=== PATIENT | female | born 1975 | race Caucasian/White ===

== ENCOUNTER → 2022-02-10 14:06 | Outpatient (BNVA) | payer MEDICAID, SELFPAY | PROVIDERS: Visit Provider Family Medicine | DX: R73.03 Prediabetes (principal); D50.9 Iron deficiency anemia, unspecified; Z98.84 Bariatric surgery status | CPT/HCPCS: 80053; 80061; 82306; 82607; 82728; 82746; 83036; 83550; 84443; 85025 ==

== ENCOUNTER → 2022-06-26 10:38 | Outpatient (BNVA) | payer MEDICAID, SELFPAY | PROVIDERS: PCP Family Medicine; Referring Provider Family Medicine; Visit Provider Psychiatry & Neurology Neurology | DX: I99.8 Other disorder of circulatory system (principal); G45.9 Transient cerebral ischemic attack, unspecified; I63.9 Cerebral infarction, unspecified | CPT/HCPCS: 36415; 81241; 82565; 82746; 83090; 83921; 84520; 85210; 85300; 85303; 85305; 85610; 85613; 85730; 86146; 86147 ==

== ENCOUNTER 2022-07-05 07:07 | Outpatient (CLI) | payer MEDICAID, SELFPAY ==
--- NOTE | 2022-07-05 07:30 | CT_ITS ---
WS: [id number] CTA HEAD TECHNIQUE: Contrast enhanced CTA of the head with coronal and sagittal reformatted images and maximum intensity projection (MIP) images. NASCET criteria utilized. CLINICAL INFORMATION: I99.8 - Other disorder of circulatory system COMPARISON: None. DLP: 2204.[address] scans at [facility] use at least one of these dose optimization techniques: automated e xposure control; mA and/or kV adjustment per patient size (includes targeted exams where dose is matc hed to clinical indication); or iterative reconstruction. FINDINGS: No evidence of intracranial hemorrhage or mass effect. Ventricular system and basal cistern s are patent. Benign-appearing asymmetric dilatation RIGHT frontal horn likely due to intraventricula r small arachnoid cyst measuring 10 mm. This is CSF attenuation. No hydrocephalus. Incidental cerebellar tonsillar ectopia. Normal 4th ventricle. Normal hughes-white differentiation. INTRACRANIAL CTA: Distal vertebral arteries are patent. Basilar artery is patent. Normal vascularity to the CREDIT CONTROL ADMINISTRATOR territo ry bilaterally. Both ICAs are patent at the skull base. Normal vascularity to the GERBER and MCA territories bilaterally . No evidence of flow-limiting stenosis or aneurysm. Mild cavernous carotid calcification. Normal pos terior nasopharynx. Paranasal sinuses and mastoid air cells well aerated. Normal dural venous sinuses. CT/CT angio head [id number] IMPRESSION: 1. Normal intracranial CTA. No evidence of proximal flow limiting stenosis or aneurysm. 2. Incidental cerebellar tonsillar ectopia. 3. Slight asymmetric dilatation of the RIGHT frontal horn likely due to small intraventricular arachnoid cyst. No hydrocephalus. 4. No other suspicious findings.
[2022-07-05] MEDS: iohexol 350 mg/mL 500 mL Btl (per mL) IV (07:35)
== END 2022-07-05 07:08 | disposition home or self-care (01) ==
PROVIDERS: PCP Family Medicine; Visit Provider Psychiatry & Neurology Neurology
DX: I99.8 Other disorder of circulatory system (principal)
CPT/HCPCS: 70496; Q9967

== ENCOUNTER 2022-07-13 08:24 | Outpatient (CLI) | payer MEDICAID, SELFPAY ==
--- NOTE | 2022-07-13 08:45 | MR_ITS ---
WS: [id number] MRI BRAIN WITHOUT CONTRAST HISTORY: I99.8 - Other disorder of circulatory system COMPARISON: CT angiogram 07/05/2022 TECHNIQUE: Diffusion imaging, multiplanar T1, T2 and FLAIR imaging obtained. No evidence for acute infarct or hemorrhage. Alexandre-white matter differentiation is normal. No prior infarct. There are a few scattered T2 and FLAIR signal hyperintensities predominantly within the frontal lobes and surrounding the anterior horn of the RIGHT lateral ventricle. Small lacunar in farct in the RIGHT pollard radiata. There is mild asymmetric dilatation and rounding of the RIGHT anterior frontal horn. Suspected to be an intraventricular arachnoid cyst on a prior CT. There is mild bulging and a rounded configuration o f the RIGHT anterior horn lateral ventricle. There is adjacent increased FLAIR and T2 signal which ma y be interstitial edema. There is no obstruction. Otherwise ventricular system is normal. Mild cerebellar ectopia. The sella turcica and pituitary gland are unremarkable. 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 Dural venous sinuses and united ke[place] of Lou demonstrate no abnormality on this unenhanced studies. Paranasal sinuses: Clear. Mastoid air cells: Normal. Calvarium and scalp: Intact. MR/MR head wo con* [id number] IMPRESSION: 1. Mild rounded configuration anterior horn RIGHT lateral ventricle with adjac ent interstitial edema. Suspected intraventricular arachnoid cyst was noted on a recent CT angiogram. Configuration follows CSF on all sequences. No obstructi ve hydrocephalus. 2. Very mild FLAIR and T2 signal changes in the frontal horns. Greatest adjace nt to the RIGHT lateral ventricle. No acute infarct. A few of the signal abnorm alities adjacent to the RIGHT lateral ventricle are perpendicular to the corpus callosum which can be seen with demyelination. 3. 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
== END 2022-07-13 08:25 | disposition home or self-care (01) ==
PROVIDERS: PCP Family Medicine; Visit Provider Psychiatry & Neurology Neurology
DX: I99.8 Other disorder of circulatory system (principal); G93.0 Cerebral cysts
CPT/HCPCS: 70551

== ENCOUNTER 2022-07-24 14:31 | Oncology outpatient (recurring) (ONCR) | payer MEDICAID, SELFPAY | END 2022-08-02 23:59 | disposition home or self-care (01) | PROVIDERS: PCP Family Medicine; Visit Provider Internal Medicine Medical Oncology | DX: E61.1 Iron deficiency (principal); I63.9 Cerebral infarction, unspecified | CPT/HCPCS: 80053; 82728; 83540; 83550; 85025; 85378 ==

== ENCOUNTER 2022-08-28 08:09 | Outpatient (CLI) | payer MEDICAID, SELFPAY ==
[2022-08-28] MEDS: iohexol 350 mg/mL 500 mL Btl (per mL) PO (09:00)
--- NOTE | 2022-08-28 09:30 | CT_ITS ---
WS: [id number] CT ABDOMEN AND PELVIS WITH CONTRAST HISTORY: lymphedema TECHNIQUE: Imaging performed of the abdomen and pelvis with IV contrast. Single phase imaging of the abdomen. Coronal and sagittal reformats are submitted. All CT scans at [facility] use at nate [facility] one of these dose optimization techniques: automated exposure control; mA and/or kV adjustment per patient size (includes targeted exams where dose is matched to clinical indication); or iterative re construction. IV CONTRAST: Omnipaque 350; 100 mL IV. Oral contrast: Yes. DLP: 284.44 mGy.cm COMPARISON: None available. Lower thorax: Lung bases are clear. Heart is normal size. No hiatal hernia. Liver/biliary system: Normal size with no intrahepatic dilatation. Gallbladder: Normal. No gallstones or wall thickening. No pericholecystic fluid. Pancreas: Normal size pancreas and pancreatic duct. No adjacent inflammation. Spleen: Normal size spleen. No mass or infarct. Adrenal glands: Low-attenuation mass RIGHT adrenal gland measures 2.2 x 1.7 cm. Hounsfield units are elevated. Normal LEFT adrenal gland. Right kidney: Normal. Left kidney: Normal. Aorta: Normal. Lymphadenopathy: None. Free fluid: None. GI tract: Prior gastric bypass. No small bowel or colon obstruction. The appendix is not identified. Abdominal wall: Unremarkable abdominal wall. No hernia. Pelvis: No free fluid or adenopathy within the pelvis. Uterus is present. The cervix is of very low a ttenuation and mildly thickened. Increased diameter and low-attenuation throughout this cervix. Bones: Unremarkable. CT/CT abdomen pelvis w con* [id number] IMPRESSION: 1. Abnormal cervix. Diffuse low-attenuation throughout the cervix with thicken ing. Recommend BICYCLE INSPECTOR evaluation for possible cervical malignancy. 2. No ascites or adenopathy. 3. RIGHT adrenal mass with enhancement. Further evaluation recommended to exclu de metastatic site versus benign adenoma. Further evaluation may include CT ad renal mass protocol or MRI with and without contrast with adrenal mass protocol . 4. Gastric bypass.
[2022-08-28] MEDS: iohexol 350 mg/mL 500 mL Btl (per mL) IV (09:41)
== END 2022-08-28 08:10 | disposition home or self-care (01) ==
PROVIDERS: PCP Family Medicine; Visit Provider Internal Medicine Medical Oncology
DX: D49.7 Neoplasm of unspecified behavior of endocrine glands and other parts of nervous system (principal); I89.0 Lymphedema, not elsewhere classified; Z98.0 Intestinal bypass and anastomosis status; R93.89 Abnormal findings on diagnostic imaging of other specified body structures
CPT/HCPCS: 74177; Q9967

== ENCOUNTER → 2022-09-14 15:00 | Outpatient (BNVA) | payer MEDICAID, SELFPAY | PROVIDERS: PCP Family Medicine; Visit Provider Obstetrics & Gynecology | DX: N88.8 Other specified noninflammatory disorders of cervix uteri (principal) | CPT/HCPCS: 87624; 88305 ==

== ENCOUNTER 2022-10-10 13:21 | Oncology outpatient (recurring) (ONCR) | payer MEDICAID, SELFPAY ==
[2022-10-10 13:30] VITALS: BP 106/71; PULSE 66; RESP 18; TEMP 36.5; O2SAT 98
[2022-10-10 13:54] LABS: Basophils # 0.1 10^3/uL (0.0-0.1); Basophils % 0.9 %; Eosinophils # 0.1 10^3/uL (0.0-0.8); Eosinophils % 2.4 %; Hematocrit 34.1 % (37.0-47.0); Hemoglobin 10.7 g/dL (11.5-15.3); Lymphocytes # 2.1 10^3/uL (0.8-4.8); Lymphocytes % 36.3 %; Mean Corpuscular HGB Conc 31.4 g/dL (30.0-36.0); Mean Corpuscular Volume 92.4 fl (81-99); Mean Platelet Volume 9.3 fL (7.4-10.4); Monocytes # 0.5 10^3/uL (0.2-0.9); Monocytes % 8.6 %; Neutrophils # 3.02 10^3/uL (1.8-7.7); Neutrophils % 51.6 %; Nucleated Red Blood Cells % 0 %; Platelet Count 338 10^3/cmm (130-400); Red Blood Count 3.69 10^6/uL (4.1-5.3); Red Cell Distribution Width 14.5 % (12.1-15.1); White Blood Count 5.8 10^3/uL (4.0-10.0)
[2022-10-10 14:20] LABS: Ferritin 9 ng/mL (15-150); Iron 29 ug/dL (37-145); Percent Saturation 8.1 % (20-50); Total Iron Binding Capacity 358 mcg/dl; Unsaturated Iron Binding 329 ug/dL (112-347)
== END 2022-11-02 23:59 | disposition home or self-care (01) ==
LOC: ONCMED 13:22
PROVIDERS: PCP Family Medicine; Visit Provider Internal Medicine Medical Oncology
DX: E61.1 Iron deficiency (principal)
CPT/HCPCS: 36415; 82728; 83540; 83550; 85025

== ENCOUNTER 2022-11-01 08:18 | Emergency (ER) | payer MEDICAID, SELFPAY ==
[2022-11-01 08:46] VITALS: BP 135/90; PULSE 86; RESP 18; TEMP 36.4; O2SAT 99
--- NOTE | 2022-11-01 08:50 | ED_ITS ---
HPI - Abdominal Pain General: Chief Complaint: Abdominal Pain Stated Complaint: N/V/D, Fever, abd pain Time Seen by Provider: 11/01/22 08:19 Source: patient Mode of arrival: ambulatory Limitations: no limitations History of Present Illness: Patient is a 47-year-old female with past medical history of factor V Leiden who presents to the emergency department complaining of nausea/vomiting/diarrhea/abdominal pain onset 8 days ago. Patient states that approximately 7-8 days ago, she developed started developing lower abdominal/pelvic pain associated with nausea and has had approximately 10 episodes of vomiting since. She states that she has been unable to keep down any solid foods, and this has resulted in her feeling weak. She states she has been able to keep down liquids however. She also notes she has had multiple episodes of diarrhea. She denies noticing any blood in both her vomit or diarrhea. She also notes waking up multiple times during the night drenched in sweat, and reports a subjective fever. Patient had biopsies done on multiple cervical masses approximately 1 month ago, which were reportedly resulted as benign. She is currently undergoing evaluation of an adrenal mass that was incidentally found on his CT scan approximately 2 months ago and awaiting MRI for this. She states that she is awaiting prescription for a blood thinner for her factor V Leiden. She denies any urinary symptoms such as hematuria or dysuria, denies any history of kidney stones. She further denies any vaginal symptoms such as discharge or foul odor. Monogamous with partner and no concerns for STDs. With her abdominal pain, she states that it is worse when she eats, when she defecates, and when she moves. She reports taking Tylenol for her pain, to no relief. The pain has been constant since onset, but states that it intermittently gets worse and is currently a 7/10 sharp pain. She further denies any chest pain, shortness of breath, skin color changes, palpitations, or any other symptoms. Previous abdominal surgeries include tubal ligation. She states LMP was about 10 days ago-right before symptoms started. She did mention she has been having increasingly painful menstrual cramps. MD elicited complaint: abdominal pain Pertinent past history: other (Factor V Leiden) Onset (ago): day(s) Pain Consistency: constant Location: RLQ, LLQ, Suprapubic and Pelvis Severity: severe Pain scale (0-10): 7 Quality: sharp Radiation: back Migration to: no migration Exacerbating factors: eating, bowel movement and movement Relieving factors: nothing Associated Symptoms: Reports diarrhea, fever(s), nausea and vomiting; Denies constipation, dysuria, heartburn, hematochezia, hematemesis, melena and syncope Related Data: Patient : No Review of Systems Const: Reports: fever(s), malaise and diaphoresis; Denies: body aches Eyes: Denies: change in vision or blurry vision Card: Denies: chest pain, palpitations, irregular heart rhythm, lightheadedness, syncope or dyspnea on exertion Resp: Denies: dyspnea, productive cough or pain on inspiration GI: Reports: abdominal pain, nausea, vomiting and diarrhea; Denies: hematemesis, heartburn, constipation, hematochezia, melena, white/light colored stool or steatorrhea : Reports: pelvic pain; Denies: flank pain, difficulty voiding, dysuria, urinary frequency, urinary urgency, urinary hesitancy, vaginal odor, vaginal bleeding or vaginal discharge Musc: Reports: back pain; Denies: neck pain, extremity pain, extremity swelling or joint pain Skin/Breast: Denies: rash Neuro: Denies: headache(s), numbness in extremities, weakness in extremities or sensory changes PFSH ED PFSH: Medical History Anxiety Depression Iron deficiency Lymphedema Pre-diabetes Recurrent strokes TIA (transient ischemic attack) Venous insufficiency Surgical History History of Loco-en-Y gastric bypass 2014 History of surgery on lower extremity History of tubal ligation Family History Mother Ovarian cancer Grandmother Thyroid disease Stroke Other Cancer Diabetes Denies family history of Colon cancer Heart disease Hypercholesteremia Breast cancer Hypertension Uterine cancer Physical Exam Const: COMMON NORMALS: average body habitus, patient oriented x3, no limitations, healthy appearing, alert and well nourished GENERAL APPEARANCE: cooperative and in distress (appears mildly uncomfortable) ORIENTATION/CONSCIOUSNESS: Yes awake, Yes oriented to person, Yes oriented to place and Yes oriented to time HENMT: COMMON NORMALS: normocephalic and atraumatic HEAD & SCALP: normocephalic and atraumatic Eye: COMMON NORMALS: no scleral icterus Neck/C-Spine: COMMON NORMALS: full ROM, no lymphadenopathy, supple and no meningeal signs Chest: COMMONS NORMALS: normal inspection of the chest Resp: COMMON NORMALS: normal respiratory effort and clear to auscultation bilaterally AUSCULTATION: clear to auscultation bilaterally Cardio: COMMON NORMALS: regular rate, regular rhythm, No gallops present (Cardio), No clicks present (Cardio), No murmurs present (Cardio) and No rub (Cardio) RATE: regular rate RHYTHM: regular rhythm GI: COMMON NORMALS: Normal to inspection, nondistended, normoactive bowel sounds present, Soft to palpation, No hepatosplenomegaly present and no masses AUSCULTATION: Yes normoactive bowel sounds PALPATION: Yes Soft to palpation, Yes Tenderness to palpation present (GI) (max tenderness across pelvis; mild epigastric tenderness-causes nausea), No Guarding due to palpation present (GI), No Rigid due to palpation and Yes No hepatosplenomegaly present OTHER: There is moderate tenderness to palpation of the suprapubic region with voluntary guarding. There is also mild tenderness to palpation of the bilateral lower quadrants/pelvis as well as the epigastrium. No signs of overlying skin color changes or bruising. No masses/bulges. No palpable masses or organomegaly noted. Normal bowel sounds. : COMMON NORMALS: Yes no CVA tenderness BLADDER/KIDNEY EXAM: Yes no CVA tenderness Back/Pelvis: COMMON NORMALS: no CVA tenderness, thoracic and lumbar spine normal to inspection, no thoracic nor lumbar tenderness and thoraco-lumbar ROM normal Extremity: COMMON NORMALS: normal to inspection GENERAL: Yes normal exam except as noted Neuro: ELLIE COMA SCALE: document GCS findings Ellie coma scale eye opening: Spontaneous [place] coma scale verbal response: Orientated [place] coma scale motor response: Obey commands Ellie coma scale total score: 15 COMMON NORMALS: patient oriented x3, moves all extremities, no focal motor deficits and no sensory deficits noted SENSORIUM/ORIENTATION: Yes alert, Yes oriented to person, Yes oriented to place and Yes oriented to time MENINGEAL SIGNS: Yes no meningeal signs Skin: COMMON NORMALS: no rashes or lesions noted GENERAL SKIN EXAM: no rashes or lesions noted Course Vital Signs: Vital signs: Vital Signs Temperature 97.6 F 11/01/22 08:46 Pulse Rate 90 11/01/22 10:49 Respiratory Rate 16 11/01/22 10:49 Blood Pressure 120/80 11/01/22 10:49 Pulse Oximetry 96 11/01/22 10:49 Oxygen Delivery Me thod Room Air 11/01/22 10:49 MDM - Abdominal Pain Medical Decision Making Patient is a 47-year-old female here for lower abdominal pain, nausea, vomiting, diarrhea for the past 8 days. She arrives with normal vital signs. On exam pain seem to be lower in the pelvis this transvaginal ultrasound imaging initially obtained. Ultrasound showing flow to both ovaries but radiologist commented on the presence of multiple peripheral follicles with slightly decreased flow when compared to right ovary that she said could in theory represent an intermittent torsion. I spoke to her personally and she was not overly convinced. Decision was made for CT imaging. On CT scan patient has a fairly extensive enterocolitis which certainly clinically fits. Again she is not tachycardic or febrile. She is not hypotensive. Blood work shows a white count of 15.1. Minor metabolic derangements. Potassium of 3.0. She was given oral potassium here. She was also given IV fluids and antiemetics. She reports feeling better. At this time I will discharge her home with pain and nausea meds as well as place her on Cipro and Flagyl and have her promptly follow-up with her primary care provider. Strict return to ED precautions given. Lab Data 11/01/22 08:51 11/01/22 08:51 Labs/Radiology: Laboratory Results WBC 15.13 10^3/uL (3.29-11.43) H 11/01/22 08:51 RBC 4.48 10^6/uL (3.85-5.65) 11/01/22 08:51 Hgb 12.70 g/dL (11.27-16.99) 11/01/22 08:51 Hct 39.1 % (36-47) 11/01/22 08:51 MCV 87.3 fl (85-98) 11/01/22 08:51 MCH 28.3 pg (27-33) 11/01/22 08:51 MCHC 32.5 g/dL (30-55) 11/01/22 08:51 RDW 13.9 % (12.1-15.1) 11/01/22 08:51 Plt Count 296 10^3/cmm (157-399) 11/01/22 08:51 MPV 9.1 fL (7.4-10.4) 11/01/22 08:51 Neut % (Auto) 76.6 % 11/01/22 08:51 Lymph % (Auto) 7.5 % 11/01/22 08:51 Hutchinson % (Auto) 14.1 % 11/01/22 08:51 Eos % (Auto) 0.1 % 11/01/22 08:51 Baso % (Auto) 0.8 % 11/01/22 08:51 Neut # (Auto) 11.60 10^3/uL (1.8-7.7) H 11/01/22 08:51 Lymph # (Auto) 1.1 10^3/uL (0.8-4.8) 11/01/22 08:51 Hutchinson # (Auto) 2.1 10^3/uL (0.2-0.9) H 11/01/22 08:51 Eos # (Auto) 0.0 10^3/uL (0.0-0.8) 11/01/22 08:51 Baso # (Auto) 0.1 10^3/uL (0.0-0.1) 11/01/22 08:51 Nucleated RBC % (auto) 0 % 11/01/22 08:51 Nucleated RBCs # 0.0 /100WBC 11/01/22 08:51 Sodium 135 mmol/L (136-145) L 11/01/22 08:51 Potassium 3.0 mmol/L (3.5-5.1) L 11/01/22 08:51 Chloride 97 mmol/L (98-107) L 11/01/22 08:51 Carbon Dioxide 25 mmol/L (22-29) 11/01/22 08:51 Anion Gap 16.0 (5-19) 11/01/22 08:51 BUN 4 mg/dL (6-20) L 11/01/22 08:51 Creatinine 0.4 mg/dL (0.5-0.9) L 11/01/22 08:51 GFR Calculation 170.4 mL/min (90-130) H 11/01/22 08:51 Glucose 120 mg/dL (65-115) H 11/01/22 08:51 Calculated Osmolality 278 mOsm/kg (285-295) L 11/01/22 08:51 Calcium 8.4 mg/dL (8.5-10.5) L 11/01/22 08:51 Magnesium 1.7 mg/dL (1.7-2.3) 11/01/22 08:51 Total Bilirubin 0.4 mg/dL (0.15-1.2) 11/01/22 08:51 AST 9 U/L (0-32) 11/01/22 08:51 ALT 10 U/L (0-33) 11/01/22 08:51 Alkaline Phosphatase 79 U/L (35-105) 11/01/22 08:51 Total Protein 6.8 g/dL (6.6-8.7) 11/01/22 08:51 Albumin 3.8 g/dL (3.5-5.2) 11/01/22 08:51 Globulin 3.0 g/dL (1.3-4.6) 11/01/22 08:51 Lipase 10 U/L (13-60) L 11/01/22 08:51 HCG, Qual Negative (Negative) 11/01/22 08:51 Urine Color Yellow (Yellow) 11/01/22 09:32 Urine Appearance Clear (CLEAR) 11/01/22 09:32 Urine pH 5 (5-7) 11/01/22 09:32 Ur Specific [place] 1.025 (1.005-1.030) 11/01/22 09:32 Urine Protein Trace (Negative) 11/01/22 09:32 Urine Glucose (UA) Norm (Normal) 11/01/22 09:32 Urine Ketones 3+ (Negative) H 11/01/22 09:32 Urine Blood Neg (Negative) 11/01/22 09:32 Urine Nitrate Negative (Negative) 11/01/22 09:32 Urine Bilirubin Neg (Negative) 11/01/22 09:32 Urine Urobilinogen Norm mg/dL (Negative) 11/01/22 09:32 Ur Leukocyte Esterase Negative (Negative) 11/01/22 09:32 Urine RBC 0-4 /hpf (0-2) H 11/01/22 09:32 Urine WBC 0-4 /hpf (0-5) H 11/01/22 09:32 Ur Squamous Epith Cells 0-4 /hpf (0-5) H 11/01/22 09:32 Amorphous Sediment Not Reportable 11/01/22 09:32 Urine Bacteria 1+ /hpf (NONE) H 11/01/22 09:32 Discharge Plan Discharge Patient Disposition: Home Clinical Impression: Enterocolitis Condition: Stable Prescriptions: New hydrocodone-acetaminophen 5-325 mg tablet 1 tab PO Q6H PRN (Reason: pain) Qty: 10 0RF metronidazole 500 mg tablet 500 mg PO BID 7 Days Qty: 14 0RF Cipro 500 mg tablet 500 mg PO Q12H Qty: 14 0RF ondansetron 4 mg tablet,disintegrating 4 mg PO Q8H PRN (Reason: nausea and vomiting) Qty: 14 0RF No Action mecobalamin (vitamin B12) 1,000 mcg tablet,chewable 1,000 mcg PO DAILY B-complex with vitamin C Tablet 1 tab PO DAILY methocarbamol 500 mg tablet 500 mg PO TID Qty: 90 2RF trazodone 50 mg tablet 50 mg PO .at bedtime Qty: 90 0RF aspirin 325 mg tablet 325 mg PO DAILY potassium chloride 20 mEq tablet extended release 20 meq PO DAILY Qty: 90 2RF bupropion HCl 300 mg tablet extended release 24 hr 300 mg PO QAM Qty: 30 1RF Rx Instructions: Please disregard prior Rx furosemide 20 mg tablet 20 mg PO DAILY Discharge Orders: Discharge ED (Routine); Ordered 11/01/22 Ordered By: Merle Al Referrals: Wendie Lopez DO [Primary Care Provider] - Patient Instructions: Infectious Colitis (ED), Colitis (ED) Activity Restrictions/Additional Instructions: As we discussed you need to follow-up promptly with your primary care provider either later this week or early next week. As we discussed you need to return to the emergency department for worsening abdominal pain, continued episodes of vomiting or diarrhea, inability to hold down your medications, fevers greater than 100.4, generally feeling worse or unwell, or any other concerns you may have. I hope you begin to feel better soon. Once symptoms subside you may speak to your primary care provider about the need for a possible colonoscopy. Coding Level of Care Code ED It Sales Consultant for Joseph Gonzalez
[2022-11-01 08:58] LABS: Basophils # 0.1 10^3/uL (0.0-0.1); Basophils % 0.8 %; Eosinophils % 0.1 %; Hematocrit 39.1 % (36-47); Lymphocytes # 1.1 10^3/uL (0.8-4.8); Lymphocytes % 7.5 %; Mean Corpuscular HGB Conc 32.5 g/dL (30-55); Mean Corpuscular Hemoglobin 28.3 pg (27-33); Mean Corpuscular Volume 87.3 fl (85-98); Mean Platelet Volume 9.1 fL (7.4-10.4); Monocytes # 2.1 10^3/uL (0.2-0.9); Monocytes % 14.1 %; Neutrophils % 76.6 %; Nucleated Red Blood Cells % 0 %; Platelet Count 296 10^3/cmm (157-399); Red Blood Count 4.48 10^6/uL (3.85-5.65); Red Cell Distribution Width 13.9 % (12.1-15.1); White Blood Count 15.13 10^3/uL (3.29-11.43)
--- NOTE | 2022-11-01 09:13 | US_ITS ---
WS: [id number] US transvaginal [id number] HISTORY: pelvic pain COMPARISON: None available. Uterus: 8.6 cm x 5.4 cm x 4.2 cm. Normal size anteverted uterus. No fibroid or mass. Endometrium: 0.4 cm. Normal. Right ovary: 2.3 cm x 2.4 cm x 1.4 cm. Normal size and vascularity, no cystic or solid masses. Small follicles. Left ovary: 3.5 cm x 1.7 cm x 3.1 cm. Normal size and vascularity, no cystic or solid masses. Numerou s small peripheral follicles. Minimal vascularity is noted within the ovary. No free fluid in the cul-de-sac. IMPRESSION: 1. Normal uterus and endometrium. 2. No free fluid. 3. Normal size ovaries. Vascularity is identified within each ovary. No torsion at this time. 4. The LEFT ovary contains multiple small peripheral follicles and the vascularity is less prominent as compared to the RIGHT. Multiple peripheral follicles can be seen with changes of torsion. The ovar y is not enlarged or edematous and there is no adjacent free fluid. At this time cannot confirm torsi on.
[2022-11-01 09:16] LABS: HCG, Serum Qual Negative (Negative)
[2022-11-01 09:17] VITALS: RESP 16; O2SAT 99
[2022-11-01] MEDS: ondansetron 2 mg/ML SDV 2 mL 4 MG IVP (09:17)
[2022-11-01] MEDS: morphine 4 mg/mL SDV 1 mL IVP (09:17)
[2022-11-01] MEDS: sodium chloride 0.9% 1,000 ML 999 ML IV (09:18)
[2022-11-01 09:20] LABS: Slide Review Slide Review Perform
[2022-11-01 09:22] LABS: Alanine Aminotransferase 10 U/L (0-33); Albumin Level 3.8 g/dL (3.5-5.2); Alkaline Phosphatase 79 U/L (35-105); Aspartate Amino Transferase 9 U/L (0-32); Blood Urea Nitrogen 4 mg/dL (6-20); Calcium 8.4 mg/dL (8.5-10.5); Carbon Dioxide 25 mmol/L (22-29); Chloride 97 mmol/L (98-107); Glomerular Filtration Rate 170.4 mL/min (90-130); Glucose 120 mg/dL (65-115); Lipase 10 U/L (13-60); Osmolality Calculated 278 mOsm/kg (285-295); Sodium 135 mmol/L (136-145); Total Bilirubin 0.4 mg/dL (0.15-1.2); Total Protein 6.8 g/dL (6.6-8.7)
[2022-11-01 09:24] VITALS: BP 126/79; PULSE 82; RESP 16; O2SAT 99
--- NOTE | 2022-11-01 09:51 | CT_ITS ---
WS: [id number] CT ABDOMEN AND PELVIS WITH CONTRAST HISTORY: lower abdominal pain, n/n/d TECHNIQUE: Imaging performed of the abdomen and pelvis with IV contrast. Single phase imaging of the abdomen. Coronal and sagittal reformats are submitted. All CT scans at [facility] use at nate [facility] one of these dose optimization techniques: automated exposure control; mA and/or kV adjustment per patient size (includes targeted exams where dose is matched to clinical indication); or iterative re construction. IV CONTRAST: Omnipaque 350; 100 mL IV. Oral contrast: No. DLP: 447.41 mGy.cm COMPARISON: 08/28/2022 Lower thorax: Lung bases are clear. Heart is normal size. No hiatal hernia. Liver/biliary system: Normal size with no intrahepatic dilatation. Gallbladder: Normal. No gallstones or wall thickening. No pericholecystic fluid. Pancreas: Normal size pancreas and pancreatic duct. No adjacent inflammation. Spleen: Normal size spleen. No mass or infarct. Adrenal glands: RIGHT adrenal mass is well-circumscribed and low-attenuation measuring 1.7 cm. No anabel nge since 08/28/2022. Adrenal mass protocol has been recommended on the prior study. Right kidney: Normal. Left kidney: Normal. Aorta: Normal. Lymphadenopathy: None. Free fluid: No significant free fluid in the pelvis. There is free fluid in the RIGHT upper quadrant near Morison's pouch and extending along the ascending colon. GI tract: Abnormal appearance to the entire colon. There is marked colonic wall thickening with submu cosal edema. Marked enhancement of the mucosa. There is wall thickening and thickening of the haustra l folds greatest along the ascending colon. This is the area where there is the most amount of kelly lonic fluid. Changes persist throughout the entire colon to the level of the rectum. No free air is i dentified. Mesenteric edema is noted on the RIGHT. Abdominal wall: Unremarkable abdominal wall. No hernia. Pelvis: No free fluid or adenopathy within the pelvis. Soft tissue cervical thickening is reidentifie d. Patient is seeing DOOR ATTENDANT at this time. Bones: Unremarkable. IMPRESSION: 1. Advanced changes most suspicious for infectious enterocolitis or acute exacerbation of inflammato ry bowel disease. Most significant findings in the RIGHT colon. There is marked wall thickening with adjacent free fluid and mesenteric edema. No obstruction. 2. No free air. 3. Prior gastric bypass. 4. No ovarian abnormality. 5. RIGHT adrenal mass is unchanged. Additional imaging evaluation was recommended on 08/28/2022. Notified JAMES Bird at 11/01/2022 11:04 AM.
[2022-11-01 10:10] LABS: Add Urine Microscopic? YES; Bilirubin Urine Neg (Negative); Blood Urine Neg (Negative); Glucose Urine UA Norm (Normal); Ketones Urine 3+ (Negative); Leukocyte Esterase Urine Negative (Negative); Nitrate Urine Negative (Negative); Protein Urine Trace (Negative); Specific Gravity, Urine 1.025 (1.005-1.030); Urine Appearance Clear (CLEAR); Urine Color Yellow (Yellow); Urobilinogen Urine Norm (Negative); pH Urine 5 (5-7)
[2022-11-01 10:11] LABS: Bacteria Urine 1+ /hpf; RBC Urine 0-4 /hpf (0-2); Squamous Epithelial Cell Urine 0-4 /hpf (0-5); WBC Urine 0-4 /hpf (0-5)
[2022-11-01] MEDS: iohexol 350 mg/mL 500 mL Btl (per mL) IV (10:16)
[2022-11-01 10:20] LABS: Magnesium 1.7 mg/dL (1.7-2.3)
[2022-11-01 10:49] VITALS: BP 120/80; PULSE 90; RESP 16; O2SAT 96
[2022-11-01] MEDS: metoclopramide 5 mg/mL SDV 2 mL 10 MG IVP (11:45)
[2022-11-01] MEDS: potassium chloride ER 20 mEq Tablet 40 MEQ PO (11:45)
[2022-11-01 11:53] VITALS: BP 120/80; PULSE 90; RESP 16; O2SAT 96
== END 2022-11-01 11:54 | disposition home or self-care (01) ==
PROVIDERS: Emergency Provider Physician Assistant; PCP Family Medicine
DX: K52.9 Noninfective gastroenteritis and colitis, unspecified (principal); Z79.82 Long term (current) use of aspirin; Z86.73 Personal history of transient ischemic attack (TIA), and cerebral infarction without residual deficits
CPT/HCPCS: 36415; 74177; 76830; 80053; 81001; 83690; 83735; 84703; 85025; 96374; 96375; 99285; J2270; J2405; J2765; J7030; Q9967

== ENCOUNTER 2022-11-30 08:00 | Oncology outpatient (recurring) (ONCR) | payer MEDICAID, SELFPAY ==
[2022-11-20 11:30] VITALS: BP 110/67; PULSE 85; RESP 16; TEMP 36.6; O2SAT 98
[2022-11-20] MEDS: sodium chloride 0.9% 250 ML 75 ML IV (11:46)
[2022-11-20] MEDS: iron sucrose 200 MG in sodium chloride 0.9% (100 ml) 100 ML 220 MG IV (11:47)
[2022-11-20 12:35] VITALS: BP 99/63; PULSE 68; RESP 16; TEMP 37; O2SAT 97
[2022-11-22 13:00] VITALS: BP 99/72; PULSE 78; RESP 16; TEMP 36.8; O2SAT 98
[2022-11-22] MEDS: iron sucrose 200 MG in sodium chloride 0.9% (100 ml) 100 ML 220 MG IV (13:30)
[2022-11-22 14:00] VITALS: BP 100/54; PULSE 74; RESP 16; TEMP 37.3; O2SAT 97
[2022-11-24 09:00] VITALS: BP 107/55; PULSE 70; RESP 16; TEMP 36.7; O2SAT 97
[2022-11-24] MEDS: iron sucrose 200 MG in sodium chloride 0.9% (100 ml) 100 ML 220 MG IV (09:15)
[2022-11-24 10:03] VITALS: BP 98/30; PULSE 64; RESP 16; TEMP 37; O2SAT 96
[2022-11-27] MEDS: iron sucrose 200 MG in sodium chloride 0.9% (100 ml) 100 ML 220 MG IV (14:46)
[2022-11-27 15:20] VITALS: BP 96/64; PULSE 72; RESP 16; TEMP 37.1; O2SAT 98
[2022-11-30 08:05] VITALS: BP 99/64; PULSE 74; RESP 17; TEMP 37.3; O2SAT 97
[2022-11-30] MEDS: iron sucrose 200 MG in sodium chloride 0.9% (100 ml) 100 ML 220 MG IV (08:39)
[2022-11-30 09:27] VITALS: BP 105/68; PULSE 68; RESP 17; TEMP 36.8; O2SAT 96
== END 2022-12-02 23:59 | disposition home or self-care (01) ==
PROVIDERS: PCP Family Medicine; Visit Provider Internal Medicine Medical Oncology
DX: D50.8 Other iron deficiency anemias (principal); Z53.9 Procedure and treatment not carried out, unspecified reason
CPT/HCPCS: 96365; J1756; J7050

== ENCOUNTER 2023-04-25 08:30 | Outpatient (CLI) | payer MEDICAID, SELFPAY ==
--- NOTE | 2023-04-25 09:30 | MR_ITS ---
WS: [id number] MRI BRAIN WITH AND WITHOUT CONTRAST HISTORY: G45.9 - Transient cerebral ischemic attack, unspecified COMPARISON: CT angiogram 07/05/2022, prior MRI brain 07/13/2022 TECHNIQUE: Multiplanar imaging performed through the brain with MultiHance 14 ml's IV. No acute infarcts are seen. Alexandre-white matter differentiation is well preserved. There are a few scat tered T2 and FLAIR signal hyperintensities. Some of these hyperintensities are perpendicular to the l ateral ventricle. There has been no increase in the size or number of these previously described hype rintensities. No temporal lobe signal abnormality. Posterior fossa is negative. Normal hippocampal fo rmations. No susceptibility artifacts or prior lacunar infarcts. No change in the appearance of the ventricles. Reidentified is the rounded configuration involving th e anterior horn of the RIGHT lateral ventricle. Probably due to an intraventricular arachnoid cyst. Clivus and pituitary gland are normal. Visualized posterior fossa and brainstem are also normal. Postcontrast images are negative for masses or vascular malformations. Dural venous sinuses are normal. Paranasal sinuses: Well aerated with no significant disease. Mastoid air cells: Normal. Calvarium and scalp: Normal. IMPRESSION: 1. Stable MRI brain since 07/13/2022. 2. Reidentified is the abnormal configuration anterior horn RIGHT lateral ventricle. Probably repres enting an intraventricular arachnoid cyst, unchanged. 3. Small amount of periventricular white matter disease is stable. 4. No enhancing mass and no acute infarct.
[2023-04-25] MEDS: gadobenate dimeglumine 20 mL vial IV (10:28)
== END 2023-04-25 08:31 | disposition home or self-care (01) ==
LOC: RAD 08:30
PROVIDERS: PCP Family Medicine; Visit Provider Family Medicine
DX: G45.9 Transient cerebral ischemic attack, unspecified (principal)
CPT/HCPCS: 70553; A9577

== ENCOUNTER → 2023-05-17 11:42 | Outpatient (BNVA) | payer OTHER, SELFPAY | PROVIDERS: PCP Family Medicine; Visit Provider Family Medicine | DX: I89.0 Lymphedema, not elsewhere classified (principal); Z13.6 Encounter for screening for cardiovascular disorders | CPT/HCPCS: 80053; 83735 ==

== ENCOUNTER 2023-05-31 11:08 | Outpatient (CLI) | payer MEDICAID, SELFPAY ==
--- NOTE | 2023-05-31 11:13 | MM_ITS ---
WS: [id number] SCREENING DIGITAL TOMOSYNTHESIS MAMMOGRAM WITH CAD HISTORY: screening COMPARISON: None available. Bilateral CC and MLO with tomosynthesis views submitted. Synthetic mammography reviewed. Computer aid ed detection analyzed. Breast composition: There are scattered areas of fibroglandular density. No suspicious masses, microc alcifications or architectural distortion. IMPRESSION: MM/[place] [id number] BI-RADS: 1-Negative FOLLOW UP: 1 Year Follow-up
== END 2023-05-31 11:09 | disposition home or self-care (01) ==
LOC: RAD 11:09
PROVIDERS: PCP Family Medicine; Visit Provider Family Medicine
DX: Z12.31 Encounter for screening mammogram for malignant neoplasm of breast (principal)
CPT/HCPCS: 77063; 77067

== ENCOUNTER → 2023-07-05 09:10 | Outpatient (BNVA) | payer SELFPAY | PROVIDERS: PCP Family Medicine; Visit Provider Family Medicine | DX: R60.0 Localized edema (principal); E27.8 Other specified disorders of adrenal gland | CPT/HCPCS: 80048 ==

== ENCOUNTER → 2023-10-09 09:14 | Outpatient (BNVA) | payer OTHER, SELFPAY | PROVIDERS: PCP Family Medicine; Visit Provider Family Medicine | DX: E55.9 Vitamin D deficiency, unspecified (principal); E61.1 Iron deficiency; R41.89 Other symptoms and signs involving cognitive functions and awareness | CPT/HCPCS: 80053; 82306; 82728; 83550; 84439; 84443; 85025 ==

== ENCOUNTER → 2024-01-01 12:18 | Outpatient (BNVA) | payer MEDICARE, SELFPAY | PROVIDERS: PCP Family Medicine; Visit Provider Psychiatry & Neurology Neurology | DX: G45.9 Transient cerebral ischemic attack, unspecified (principal); Z86.73 Personal history of transient ischemic attack (TIA), and cerebral infarction without residual deficits; I63.9 Cerebral infarction, unspecified; G44.009 Cluster headache syndrome, unspecified, not intractable; E55.9 Vitamin D deficiency, unspecified; D68.51 Activated protein C resistance | CPT/HCPCS: 99212; 99213 ==

== ENCOUNTER 2024-07-07 08:04 | Emergency (ER) | payer MEDICARE, SELFPAY ==
[2024-07-07] VITALS (8 sets, daily range): BP systolic 83–119; BP diastolic 59–85; PULSE 73–89; RESP 18; TEMP 36.7; O2SAT 99–100; BMI 27.3
--- NOTE | 2024-07-07 08:05 | XR_ITS ---
WS: [id number] XR chest 1V portable [id number] REASON FOR EXAM: dyspnea/cough FINDINGS: The heart and the mediastinum are within normal limits. Minimal calcified granulomatous disease bilaterally. No acute pulmonary parenchymal or pleural abnormality. Old healed right rib fractures. XR/XR chest 1V portable [id number] IMPRESSION: No acute chest abnormality.
--- NOTE | 2024-07-07 08:06 | ECG_ITS ---
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 Measurements Intervals [place] Rate: 77 P: 73 NH: 137 QRS: 88 QRSD: 85 T: 75 QT: 407 QTc: 461 Interpretive Statements SINUS RHYTHM No previous ECG available for comparison Electronically Signed On 07-07-2024 09:10:32 CDT by Omari Parsons M.D. [id number]
[2024-07-07 08:20] LABS: Basophils % 0.6 %; Eosinophils # 0.1 10^3/uL (0.0-0.8); Eosinophils % 1.3 %; Hematocrit 37.2 % (36-47); Lymphocytes # 2.3 10^3/uL (0.8-4.8); Lymphocytes % 49.5 %; Mean Corpuscular HGB Conc 32.8 g/dL (30-55); Mean Corpuscular Volume 91.4 fl (85-98); Mean Platelet Volume 9.7 fL (7.4-10.4); Monocytes # 0.4 10^3/uL (0.2-0.9); Monocytes % 9.3 %; Neutrophils # 1.82 10^3/uL (1.8-7.7); Neutrophils % 39.3 %; Nucleated Red Blood Cells % 0 %; Platelet Count 267 10^3/cmm (157-399); Red Blood Count 4.07 10^6/uL (3.85-5.65); Red Cell Distribution Width 12.9 % (12.1-15.1); White Blood Count 4.63 10^3/uL (3.29-11.43)
[2024-07-07 08:37] LABS: Alanine Aminotransferase 17 U/L (0-33); Albumin Level 3.9 g/dL (3.5-5.2); Alkaline Phosphatase 67 U/L (35-105); Anion Gap 11.6 (5-19); Aspartate Amino Transferase 16 U/L (0-32); Blood Urea Nitrogen 8 mg/dL (6-20); Calcium 8.3 mg/dL (8.5-10.5); Carbon Dioxide 29 mmol/L (22-29); Chloride 100 mmol/L (98-107); Globulin 2.7 g/dL (1.3-4.6); Glomerular Filtration Rate 106.3 mL/min (90-130); Glucose 120 mg/dL (65-115); Osmolality Calculated 286 mOsm/kg (285-295); Sodium 138 mmol/L (136-145); Total Bilirubin 0.7 mg/dL (0.15-1.2); Total Protein 6.6 g/dL (6.6-8.7)
[2024-07-07 08:46] LABS: Potassium 2.6 mmol/L (3.5-5.1)
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
[2024-07-07] MEDS: potassium chloride premix 100 ML 25 MEQ IV (09:03)
[2024-07-07] MEDS: potassium chloride oral liq 20 mEq/15 mL UDC 40 MEQ PO (09:03)
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
[2024-07-07 11:55] LABS: Add Urine Microscopic? YES; Bilirubin Urine Neg (Negative); Blood Urine Neg (Negative); Glucose Urine UA Norm (Normal); Ketones Urine 2+ (Negative); Leukocyte Esterase Urine Negative (Negative); Nitrate Urine Negative (Negative); Protein Urine Neg (Negative); Urine Appearance Slightly Cloudy (CLEAR); Urine Color Yellow (Yellow); Urobilinogen Urine Norm (Negative); pH Urine 6.5 (5-7)
[2024-07-07 11:56] LABS: Add Urine Culture? No; Amorphous Sediment Urine 1+ /hpf; Bacteria Urine TRACE /hpf; Hyaline Casts Urine 0-4 /lpf; RBC Urine 0-4 /hpf (0-2); Squamous Epithelial Cell Urine 0-4 /hpf (0-5); WBC Urine 0-4 /hpf (0-5)
== END 2024-07-07 12:24 | disposition home or self-care (01) ==
PROVIDERS: Emergency Provider Family Medicine; PCP Family Medicine
DX: T50.905A Adverse effect of unspecified drugs, medicaments and biological substances, initial encounter (principal); I89.0 Lymphedema, not elsewhere classified; E87.6 Hypokalemia; Z86.73 Personal history of transient ischemic attack (TIA), and cerebral infarction without residual deficits; Z79.01 Long term (current) use of anticoagulants; X58.XXXA Exposure to other specified factors, initial encounter
CPT/HCPCS: 36415; 70450; 71045; 80053; 81001; 83735; 84132; 85025; 93005; 99285; J3480; J9999

== ENCOUNTER → 2024-08-07 15:50 | Outpatient (BNVA) | payer MEDICARE, SELFPAY | PROVIDERS: PCP Family Medicine; Visit Provider Family Medicine | DX: I89.0 Lymphedema, not elsewhere classified (principal); E55.9 Vitamin D deficiency, unspecified | CPT/HCPCS: 80053; 82306 ==

== ENCOUNTER → 2024-08-18 11:41 | Outpatient (BNVA) | payer MEDICARE, SELFPAY | PROVIDERS: PCP Family Medicine; Visit Provider Student in an Organized Health Care Education/Training Program | DX: K51.90 Ulcerative colitis, unspecified, without complications (principal) | CPT/HCPCS: 99204 ==

== ENCOUNTER 2024-09-09 10:39 | Day surgery (SDC) | payer MEDICARE, SELFPAY ==
[2024-09-09 11:10] VITALS: BP 126/98; PULSE 99; RESP 17; TEMP 36.6; O2SAT 99; BMI 26.5
[2024-09-09 11:16] LABS: OR HCG Qualitative Urine Negative (Negative)
--- NOTE | 2024-09-09 11:19 | ANES.PREANE2 ---
Pre-Anesthetic Assessment Height/Weight: Height 1.52 m Weight 61.689 kg Temp Pulse Resp BP Pulse Ox O2 Del Method 97.8 F 99 17 126/98 99 Room Air 09/09/24 11:10 09/09/24 11:10 09/09/24 11:10 09/09/24 11:10 09/09/24 11:10 09/09/24 11:10 Operation Date: 09/09/24 12:45 Proposed Procedures p Colonoscopy 27947 G0105, Z12.11(Not Applicable) - Aroldo Dupree MD Familial anesthetic complications: None Was Beta Shaquille taken within 24 hours: N/A Was Clonidine taken within 24 hours: N/A Last intake: Intake Last Liquid Date 09/08/24 Last Liquid Time 21:00 Last Solid Date 09/07/24 Last Solid Time 19:00 Social No alcohol and No tobacco Exam alert, oriented x 3, clear to auscultation bilaterally and regular rate & rhythm Airway Mallampati: Class II Dentition: false CV/HEM factor V leiden GI UC Gastric Bypass Neuropsych Cerebrovascular Accident Anesthetic Plan ASA status: 3 Anesthesia: MAC Risk of > 500 ml blood loss (7ml/kg in children): No Medications/Allergies Home Medications ?Medication ?Instructions ?Recorded ?Confirmed ?Last Taken ?Type Bilateral leg sleeves for #1 ea 05/17/23 09/03/24 09/03/24 07:00 Rx pneumatic compression device trazodone 100 mg tablet 300 mg (3 x 100 mg) PO .HS PRN 10/16/23 09/09/24 09/03/24 07:00 Rx insomnia #90 tabs buspirone 15 mg tablet 15 mg PO BID 07/07/24 09/09/24 09/08/24 History dextroamphetamine-amphetamine ER 10 mg PO QAM 07/07/24 09/09/24 09/08/24 History 10 mg 24hr capsule,extend release venlafaxine 150 mg 150 mg PO QAM 07/07/24 09/09/24 09/08/24 History capsule,extended release 24 hr (Effexor XR) potassium chloride 20 mEq 20 meq PO DAILY #60 tabs 08/07/24 09/09/24 09/08/24 Rx tablet,extended release (K-Tab) torsemide 20 mg tablet 40 mg (2 x 20 mg) PO QAM #120 tabs 08/07/24 09/09/24 09/08/24 Rx apixaban 5 mg tablet (Eliquis) 5 mg PO QAM 09/03/24 09/03/24 09/07/24 History furosemide 40 mg tablet (Lasix) 20 mg PO DAILY 09/03/24 09/09/24 09/08/24 History Allergies Allergy/AdvReac Type Severity Reaction Status Date / Time No Known Allergies Allergy Verified 09/09/24 11:05 Current Medications Generic Name Dose Route Start Last Admin Trade Name Freq PRN Reason Stop Dose Admin Sodium Chloride 1,000 mls @ 15 mls/hr 09/09/24 10:54 09/09/24 11:15 Sodium Chloride 0.9% IV 09/10/24 10:53 15 mls/hr .Q24H PRN Administration COLONOSCOPY FLUIDS PFSH Anesthesia Medical History (Updated 08/18/24 @ 13:41 by Aroldo Dupree MD) ADHD Degenerative disk disease Psychiatric care Recurrent strokes Venous insufficiency Lymphedema TIA (transient ischemic attack) Pre-diabetes Iron deficiency Anxiety Depression Surgical History History of tubal ligation History of surgery on lower extremity History of Loco-en-Y gastric bypass 2013 Family History Mother Ovarian cancer Grandmother Thyroid disease Stroke Other Cancer Diabetes Denies family history of Colon cancer Heart disease Hypercholesteremia Breast cancer Hypertension Uterine cancer Social History Smoking and tobacco/nicotine status: never used tobacco/nicotine Alcohol intake: never Substance/Drug Use: never Female Reproductive History Date of last menstrual period: 08/19/24
--- NOTE | 2024-09-09 12:01 | ANES.PREANE2 ---
Pre-Anesthetic Assessment Height/Weight: Height 1.52 m Weight 61.689 kg Temp Pulse Resp BP Pulse Ox O2 Del Method 97.8 F 99 17 126/98 99 Room Air 09/09/24 11:10 09/09/24 11:10 09/09/24 11:10 09/09/24 11:10 09/09/24 11:10 09/09/24 11:10 Operation Date: 09/09/24 12:45 Proposed Procedures p Colonoscopy 89965 G0105, Z12.11(Not Applicable) - Aroldo Dupree MD Last intake: Intake Last Liquid Date 09/08/24 Last Liquid Time 21:00 Last Solid Date 09/07/24 Last Solid Time 19:00 Exam alert, oriented x 3, clear to auscultation bilaterally and regular rate & rhythm Airway Submandibular: within normal limits Cervical ROM: within normal limits Mallampati: Class I Dentition: caps and false History/ROS No significant complaints Pulmonary None reported CV/HEM None reported None reported Hepatic None reported GI None reported Metabolic None reported Musc/skel lymphadema Neuropsych None reported Anesthetic Plan ASA status: 3 Anesthesia: Anesthesia Evaluation and MAC Risk of > 500 ml blood loss (7ml/kg in children): No Medications/Allergies Home Medications ?Medication ?Instructions ?Recorded ?Confirmed ?Last Taken ?Type Bilateral leg sleeves for #1 ea 05/17/23 09/03/24 09/03/24 07:00 Rx pneumatic compression device trazodone 100 mg tablet 300 mg (3 x 100 mg) PO .HS PRN 10/16/23 09/09/24 09/03/24 07:00 Rx insomnia #90 tabs buspirone 15 mg tablet 15 mg PO BID 07/07/24 09/09/24 09/08/24 History dextroamphetamine-amphetamine ER 10 mg PO QAM 07/07/24 09/09/24 09/08/24 History 10 mg 24hr capsule,extend release venlafaxine 150 mg 150 mg PO QAM 07/07/24 09/09/24 09/08/24 History capsule,extended release 24 hr (Effexor XR) potassium chloride 20 mEq 20 meq PO DAILY #60 tabs 08/07/24 09/09/24 09/08/24 Rx tablet,extended release (K-Tab) torsemide 20 mg tablet 40 mg (2 x 20 mg) PO QAM #120 tabs 08/07/24 09/09/24 09/08/24 Rx apixaban 5 mg tablet (Eliquis) 5 mg PO QAM 09/03/24 09/03/24 09/07/24 History furosemide 40 mg tablet (Lasix) 20 mg PO DAILY 09/03/24 09/09/24 09/08/24 History Allergies Allergy/AdvReac Type Severity Reaction Status Date / Time No Known Allergies Allergy Verified 09/09/24 11:05 Current Medications Generic Name Dose Route Start Last Admin Trade Name Freq PRN Reason Stop Dose Admin Sodium Chloride 1,000 mls @ 15 mls/hr 09/09/24 10:54 09/09/24 11:15 Sodium Chloride 0.9% IV 09/10/24 10:53 15 mls/hr .Q24H PRN Administration COLONOSCOPY FLUIDS PFSH Anesthesia Medical History (Updated 08/18/24 @ 13:41 by Aroldo Dupree MD) ADHD Degenerative disk disease Psychiatric care Recurrent strokes Venous insufficiency Lymphedema TIA (transient ischemic attack) Pre-diabetes Iron deficiency Anxiety Depression Surgical History History of tubal ligation History of surgery on lower extremity History of Loco-en-Y gastric bypass 2013 Family History Mother Ovarian cancer Grandmother Thyroid disease Stroke Other Cancer Diabetes Denies family history of Colon cancer Heart disease Hypercholesteremia Breast cancer Hypertension Uterine cancer Social History Smoking and tobacco/nicotine status: never used tobacco/nicotine Alcohol intake: never Substance/Drug Use: never Female Reproductive History Date of last menstrual period: 08/19/24
--- NOTE | 2024-09-09 12:22 | W.PM.OPSUD ---
Surgery/Procedure H&P Update DATE OF PROCEDURE: September 09, 2024 DATE H&P PERFORMED: 08/18/24 H&P UPDATE INFORMATION: I have reviewed H&P completed within last 30 days, I have examined patient prior to procedure and No changes to prior documentation PLANNED PROCEDURE: Operation Date: 09/09/24 12:45 Proposed Procedures p Colonoscopy 46653 G0105, Z12.11(Not Applicable) - Aroldo Dupree MD
--- NOTE | 2024-09-09 12:34 | PC.NURSE ---
Cecum time 1233
[2024-09-09 12:47] VITALS: BP 102/64; PULSE 98; RESP 10; TEMP 36.3; O2SAT 98
[2024-09-09 13:08] VITALS: BP 101/65; PULSE 75; RESP 14; O2SAT 100
[2024-09-09 13:20] VITALS: BP 119/77; PULSE 78; RESP 16; O2SAT 100
--- NOTE | 2024-09-09 13:53 | ANE.PACU2 ---
Inpatient post-anesthesia follow up: Airway intact: Yes Vital signs: Temperature 97.4 F Pulse Rate 78 Respiratory Rate 16 Blood Pressure 119/77 Pulse Oximetry 100 Oxygen Delivery Me thod Room Air Oxygen Flow Rate Fraction of Inspir ed Oxygen Hydration adequate: Yes Nausea and vomiting: No Pain level: 1 Mental status: Baseline
== END 2024-09-09 13:40 | disposition home or self-care (01) ==
PROVIDERS: Anesthesiology; PCP Family Medicine; Visit Provider Student in an Organized Health Care Education/Training Program
PROC: 0DJD8ZZ Inspection of Lower Intestinal Tract, Via Natural or Artificial Opening Endoscopic (ICD-10-PCS; CPT 45378; principal; 2024-09-09 12:45)
DX: K51.90 Ulcerative colitis, unspecified, without complications (principal); D68.51 Activated protein C resistance; Z98.84 Bariatric surgery status; Z86.73 Personal history of transient ischemic attack (TIA), and cerebral infarction without residual deficits; Z79.899 Other long term (current) drug therapy; Z79.01 Long term (current) use of anticoagulants; Z83.79 Family history of other diseases of the digestive system
CPT/HCPCS: 45380; 81025; 88305; J2704; J7030

== ENCOUNTER → 2024-09-11 11:21 | Outpatient (BNVA) | payer MEDICARE, SELFPAY | PROVIDERS: PCP Family Medicine; Visit Provider Family Medicine | DX: R60.0 Localized edema (principal) | CPT/HCPCS: 80048 ==

== ENCOUNTER → 2024-09-22 11:31 | Outpatient (BNVA) | payer MEDICARE, SELFPAY | PROVIDERS: PCP Family Medicine; Visit Provider Student in an Organized Health Care Education/Training Program | DX: Z09 Encounter for follow-up examination after completed treatment for conditions other than malignant neoplasm (principal) | CPT/HCPCS: 99213 ==